=== PATIENT | female | born 1980 | race Caucasian/White ===

== ENCOUNTER 2016-10-14 12:57 | Emergency (ER) | payer OTHER ==
[~2016-10-14] VITALS: Wt 85.3 kg
[~2016-10-14 12:57] MED LIST: ACETAMINOPHEN-H1 TA2 PO; ALBUTEROL0.09 MG/A2 IH; AVIDOXY100 MG PO; DIFLUCAN150 MG PO; NKHM; PERCOCET 325 MG1 TA7 PO; PRILOSEC20 M1 PO; PRINIVIL10 MG PO; TESSALON PERLE200 MG PO; ZOFRAN ODT4 MG SL
[2016-10-14] MEDS ORDERED: HYDROCODONE BIT1 T11 PO (14:26)
[2016-10-14] MEDS ORDERED: NAPROSYN500 MG PO ×2 (14:26→14:28)
== END 2016-10-14 14:54 | disposition home or self-care (01) ==
LOC: ED 12:57
DX: S42.201A Unspecified fracture of upper end of right humerus, initial encounter for closed fracture (principal); R03.0 Elevated blood-pressure reading, without diagnosis of hypertension; F17.200 Nicotine dependence, unspecified, uncomplicated; Z91.040 Latex allergy status; Z90.49 Acquired absence of other specified parts of digestive tract; W18.30XA Fall on same level, unspecified, initial encounter; Y93.89 Activity, other specified; Y92.9 Unspecified place or not applicable; Y99.9 Unspecified external cause status

== ENCOUNTER → 2016-10-29 | Outpatient (CLI) | payer OTHER ==
[~2016-10-29] MED LIST changes: +HYDROCODONE BIT1 T11 PO; +NAPROSYN500 MG PO
== END | disposition home or self-care (01) ==
LOC: ORTHO 02:14
DX: S42.251D Displaced fracture of greater tuberosity of right humerus, subsequent encounter for fracture with routine healing (principal); X58.XXXD Exposure to other specified factors, subsequent encounter

== ENCOUNTER → 2016-11-11 | Outpatient (CLI) | payer OTHER ==
[~2016-11-11] MED LIST changes: +ADVIL,MOTRIN,R200 MG PO; +CYCLOBENZAPRINE10 MG PO
== END | disposition home or self-care (01) ==
LOC: ORTHO 03:07
DX: S42.92XD Fracture of left shoulder girdle, part unspecified, subsequent encounter for fracture with routine healing (principal); X58.XXXD Exposure to other specified factors, subsequent encounter

== ENCOUNTER → 2016-11-12 | Outpatient (CLI) | payer OTHER ==
[~2016-11-12] MED LIST changes: +PERCOCET 325 MG1 TA5 PO; +ZOFRAN4 MG PO
== END | disposition home or self-care (01) ==
LOC: CT 10:14
DX: Z01.818 Encounter for other preprocedural examination (principal); S42.254D Nondisplaced fracture of greater tuberosity of right humerus, subsequent encounter for fracture with routine healing; F17.200 Nicotine dependence, unspecified, uncomplicated; X58.XXXD Exposure to other specified factors, subsequent encounter; Z86.79 Personal history of other diseases of the circulatory system

== ENCOUNTER → 2016-11-17 | Day surgery (SDC) | payer OTHER ==
[2016-11-12 11:51] LABS: BASO # 0.1 10*3/uL (0.0-0.1); BASO % 0.6 % (0.0-1.0); EOS # 0.2 10*3/uL (0.0-0.4); EOS % 2.8 % (1.0-4.0); HEMATOCRIT 43.6 % (37.0-47.0); HEMOGLOBIN 14.7 g/dl (12.0-16.0); IG # 0.1 10*3/uL (0.0-0.1); LYMPH # 3.3 10*3/uL (1.3-4.4); LYMPH % 38.8 % (27.0-41.0); MEAN CELL VOLUME 98.2 fl (81.0-99.0); MEAN CORPUSCULAR HGB 33.1 pg (27.0-31.0); MEAN CORPUSCULAR HGB CONC 33.7 g/dl (33.0-37.0); MEAN PLATELET VOLUME 9.8 fl (9.6-12.3); MONO # 0.5 10*3/uL (0.1-1.0); MONO % 5.2 % (3.0-9.0); NEUT # 4.4 10*3/uL (2.3-7.9); NEUT % 51.8 % (47.0-73.0); PLATELET COUNT AUTOMATED 229 10*3/uL (130-400); RED BLOOD COUNT 4.44 10*6/uL (4.10-5.10); RED CELL DISTRI WIDTH 13.1 % (0-14.5); WHITE BLOOD COUNT 8.6 10*3/uL (4.8-10.8)
[2016-11-12 11:52] LABS: BILIRUBIN NEGATIVE (NEGATIVE); BLOOD 1+ (NEGATIVE); CLARITY SL CLOUDY (CLEAR); COLOR YELLOW (YELLOW); GLUCOSE NEGATIVE (NEGATIVE); KETONE NEGATIVE (NEGATIVE); LEUKO ESTERASE NEGATIVE (NEGATIVE); NITRITE NEGATIVE (NEGATIVE); PROTEIN NEGATIVE (NEGATIVE); UROBILINOGEN 0.2 E.U./dl (0.2-1.0)
[2016-11-12 12:06] LABS: BUN 10 mg/dl (7-24); CARBON DIOXIDE 27 mmol/L (21-32); CHLORIDE 107 mmol/L (98-107); EST GLOM FILT AFRICAN AMERICAN > 60 ml/min; GLUCOSE 88 mg/dL (65-99); POTASSIUM 3.7 mmol/L (3.5-5.1); SODIUM 141 mmol/L (136-145)
[~2016-11-17] VITALS: Ht 170.1 cm; Wt 86.2 kg
[2016-11-17] VITALS (8 sets, daily range): BP systolic 135–164; BP diastolic 78–94
--- NOTE | ~2016-11-17 | O ---
[place], [place] OPERATIVE NOTE NAME: CHANNING BELLO [facility] #: [id number] UNIT #: [id number] ROOM: DOCTOR: WILVER HOBBS DO BIRTHDATE: [birth year] DOS: 11/17/2016 PREOPERATIVE DIAGNOSIS: Right greater tuberosity fracture with displacement, proximal humerus. POSTOPERATIVE DIAGNOSIS: Right greater tuberosity fracture with displacement, proximal humerus. OPERATIVE PROCEDURE: Open reduction and internal fixation of right greater tuberosity fracture of the proximal humerus. SURGEON: Wilver Hobbs DO. MEDIA MARKETING DIRECTOR: Cee. ANESTHESIA: FRANCES Segura, general endotracheal. INDICATIONS: The patient is a 36-year-old female with a history of a right greater tuberosity fracture of the proximal humerus with delayed healing and minimal displacement. The risks and benefits of the procedure were explained to the patient preoperatively. Preoperative labs and x-rays were obtained. DESCRIPTION OF PROCEDURE: The right upper extremity was marked in the holding room. The patient was brought to the operative suite. The patient was placed supine on the operative table. A general anesthetic with endotracheal intubation was performed. The patient received Ancef 2 grams IV piggyback. The right upper extremity was prepped and draped in the usual orthopedic manner. Time-out was performed. A lateral incision was planned just distal to the lateral acromion approximately 2 cm in length. The area was injected with Marcaine 0.5% with epinephrine. The incision was made sharply with a scalpel. Subcutaneous tissue was spread down to the level of the deltoid. The deltoid was divided along its fibers. Under C-arm guidance, the greater tuberosity was identified. This was reduced using a [place] elevator. Three partially threaded K-wires were placed under C-arm guidance. The lengths were measured. Three 5 mm self-tapping, self-drilling screws were placed over the K wires, one was with a washer. These were advanced by hand. Position was evaluated under C-arm in multiple planes. The K-wires were removed. The area was copiously irrigated with normal saline. The wounds were repaired in a layered fashion with 2-0 Vicryl followed by 4-0 Vicryl and skin karen. The area was injected with Marcaine 0.5% with epinephrine. A dry sterile dressing was applied. The patient was placed in a sling. The anesthetic was reversed. The patient was extubated and taken to recovery room in satisfactory condition. Sponge and needle count correct. ESTIMATED BLOOD LOSS: 10 mL. SPECIMENS: None. DRAINS: None. [place], [place] OPERATIVE NOTE NAME: CHANNING BELLO UNIT #: [id number] ROOM: DOCTOR: WILVER HOBBS DO BIRTHDATE: [birth year] PACKING: None. FINDINGS: Displaced greater tuberosity fracture, right proximal humerus. IMPLANTS: Biomet 5.0 mm screws measuring 34 mm, 30 mm and 30 mm and one single Biomet washer. WILVER HOBBS DO CM:OPRECORD:OPERATIVE NOTE [id number] WILVER HOBBS DO 11/17/16 1749 interface
== END | disposition home or self-care (01) ==
LOC: SDC 11-12 10:15
PROVIDERS: Orthopaedic Surgery
DX: S42.251G Displaced fracture of greater tuberosity of right humerus, subsequent encounter for fracture with delayed healing (principal); K21.9 Gastro-esophageal reflux disease without esophagitis; F41.9 Anxiety disorder, unspecified; Z98.890 Other specified postprocedural states; F17.210 Nicotine dependence, cigarettes, uncomplicated; X58.XXXD Exposure to other specified factors, subsequent encounter

== ENCOUNTER → 2016-11-26 | Outpatient (CLI) | payer OTHER | END | disposition home or self-care (01) | LOC: CARD 13:00 | DX: Z01.810 Encounter for preprocedural cardiovascular examination (principal); I47.1 Supraventricular tachycardia; I08.3 Combined rheumatic disorders of mitral, aortic and tricuspid valves ==

== ENCOUNTER → 2016-11-30 | Outpatient (CLI) | payer OTHER | END | disposition home or self-care (01) | LOC: ORTHO 08:06 | DX: Z51.89 Encounter for other specified aftercare (principal) ==

== ENCOUNTER → 2016-12-30 | Outpatient (CLI) | payer OTHER | END | disposition home or self-care (01) | LOC: ORTHO 01:52 | DX: M25.511 Pain in right shoulder (principal) ==

== ENCOUNTER → 2017-01-18 | Outpatient (CLI) | payer OTHER | END | disposition home or self-care (01) | LOC: ORTHO 03:17 | DX: S42.251D Displaced fracture of greater tuberosity of right humerus, subsequent encounter for fracture with routine healing (principal); X58.XXXD Exposure to other specified factors, subsequent encounter ==

== ENCOUNTER → 2017-02-22 | Outpatient (CLI) | payer OTHER | END | disposition home or self-care (01) | LOC: ORTHO 01:53 | DX: S42.251G Displaced fracture of greater tuberosity of right humerus, subsequent encounter for fracture with delayed healing (principal); X58.XXXD Exposure to other specified factors, subsequent encounter ==

== ENCOUNTER → 2017-03-16 | Outpatient (CLI) | payer OTHER | END | disposition home or self-care (01) | LOC: CT 14:00 | DX: S42.251G Displaced fracture of greater tuberosity of right humerus, subsequent encounter for fracture with delayed healing (principal); M25.511 Pain in right shoulder; X58.XXXD Exposure to other specified factors, subsequent encounter ==

== ENCOUNTER → 2017-04-06 | Day surgery (SDC) | payer OTHER ==
[2017-04-02 12:05] LABS: BASO % 0.5 % (0.0-1.0); EOS # 0.2 10*3/uL (0.0-0.4); EOS % 2.8 % (1.0-4.0); HEMATOCRIT 43.1 % (37.0-47.0); HEMOGLOBIN 14.5 g/dl (12.0-16.0); LYMPH # 2.2 10*3/uL (1.3-4.4); LYMPH % 28.6 % (27.0-41.0); MEAN CELL VOLUME 102.9 fl (81.0-99.0); MEAN CORPUSCULAR HGB 34.6 pg (27.0-31.0); MEAN CORPUSCULAR HGB CONC 33.6 g/dl (33.0-37.0); MEAN PLATELET VOLUME 10.3 fl (9.6-12.3); MONO # 0.4 10*3/uL (0.1-1.0); MONO % 5.6 % (3.0-9.0); NEUT # 4.7 10*3/uL (2.3-7.9); PLATELET COUNT AUTOMATED 212 10*3/uL (130-400); RED BLOOD COUNT 4.19 10*6/uL (4.10-5.10); RED CELL DISTRI WIDTH 13.6 % (0-14.5); WHITE BLOOD COUNT 7.5 10*3/uL (4.8-10.8)
[2017-04-02 12:07] LABS: BILIRUBIN 1+ (NEGATIVE); BLOOD 1+ (NEGATIVE); CLARITY CLOUDY (CLEAR); COLOR YELLOW (YELLOW); GLUCOSE NEGATIVE (NEGATIVE); KETONE TRACE (NEGATIVE); LEUKO ESTERASE TRACE (NEGATIVE); NITRITE NEGATIVE (NEGATIVE); UROBILINOGEN 0.2 E.U./dl (0.2-1.0)
[2017-04-02 12:36] LABS: ALBUMIN 3.9 gm/dl (3.1-4.5); ALKALINE PHOSPHATASE 83 U/L (45-117); BUN 5 mg/dl (7-24); CHLORIDE 109 mmol/L (98-107); CREATININE 0.89 mg/dL (0.55-1.02); POTASSIUM 3.3 mmol/L (3.5-5.1); SGOT/AST 13 IU/L (3-35); SGPT/ALT 22 U/L (12-78); SODIUM 145 mmol/L (136-145); TOTAL PROTEIN 7.6 gm/dL (6.4-8.2)
[2017-04-02 13:18] LABS: BACTERIA 2+; MUCOUS 2+
[~2017-04-06] VITALS: Ht 170.1 cm; Wt 80.7 kg
[~2017-04-06] MED LIST changes: +ADIPEX-P37.5 MG PO; +Percocet 325 MG1 TAB PO
--- NOTE | ~2017-04-06 | O ---
[place], [place] OPERATIVE NOTE NAME: CHANNING BELLO [facility] [id number] UNIT #: [id number] ROOM: DOCTOR: HUDSON MOSESWILVER BIRTHDATE: [birth year] DOS: 04/06/2017 PREOPERATIVE DIAGNOSIS: Painful retained hardware, right shoulder. POSTOPERATIVE DIAGNOSIS: Painful retained hardware, right shoulder. OPERATIVE PROCEDURE: Removal of retained hardware, right shoulder; allograph bone graft; rotator cuff repair; manipulation under anesthetic. INDICATIONS: The patient is a 36-year-old female with a history of a greater tuberosity fracture, who underwent open reduction and internal fixation. The patient was noted to have continued pain and loss of motion. The CT scam indicated that fracture was healed, but there was a prominent hardware. The risks and benefits of the procedure were explained to the patient preoperatively. Preoperative labs and x-rays were obtained. PROCEDURE IN DETAIL: The right shoulder was marked in the holding room. The patient was brought to the operative suite. The patient was placed supine on the shoulder table. General anesthetic with endotracheal intubation was performed. A timeout was performed. The patient received Ancef 2 grams IV piggyback preoperatively. The right lower extremity was prepped and draped in usual orthopedic fashion. The C-arm was brought in to evaluate the fracture and the 3 retained 5.0 mm screws and a single washer. The previously made incision was lateral, was injected with Marcaine 0.5% with epinephrine. Subcutaneous tissue was spread down to the level of the deltoid fascia. The deltoid fascia was divided longitudinally and the deltoid muscle was divided along its fibers. The screw with the washer was identified and noted to be partially overgrown with bone. This was removed using a dental pick and rongeur. When this was exposed, it was obvious that the second screw was also impinging upon the washer and this was cleared of any bony and fibrous debris. The third screw was then identified and also removed of any bony and fibrous debris. A single K-wire was used to enter the cannulated portion of each screw. The screws were removed in a handheld fashion with a screwdriver. The washer was removed as well. The area was copiously irrigated with normal saline. The screw holes were cultured and sent for gram stain. Further irrigation was performed. The Biomet StaGraft DBM putty was used to fill the screw holes. A single stitch of 5-0 Ethibond was used to repair the longitudinal opening in the supraspinatus. A #2 Ethibond was used to close the deltoid fascia, 2-0 Vicryl was used to close the adipose layer and the closure was completed with skin karen. The incision was injected with Marcaine 0.5% with epinephrine. The dressing was applied using Xeroform, 4 x 4s and Tegaderm. An ABD was placed in the axilla. The patient was placed in a sling and swathe dressing with an abduction pillow. The anesthetic was reversed. The patient was extubated and taken to the recovery room in satisfactory condition. Sponge and needle count correct. [place], [place] OPERATIVE NOTE NAME: CHANNING BELLO UNIT #: [id number] ROOM: DOCTOR: WILVER TREVIÑO DO BIRTHDATE: [birth year] ESTIMATED BLOOD LOSS: 100 mL. FINDINGS: Painful retained hardware, right greater tuberosity. DRAINS: None. PACKING: None. WILVER TREVIÑO DO CM:OPRECORD:OPERATIVE NOTE [id number] WILVER TREVIÑO DO 04/06/17 1242 interface
[2017-04-06 11:13] VITALS: BP 131/80
[2017-04-06 11:28] VITALS: BP 131/80
[2017-04-06 11:43] VITALS: BP 137/86
[2017-04-06 11:58] VITALS: BP 137/86
[2017-04-06 12:07] VITALS: BP 136/82
== END | disposition home or self-care (01) ==
LOC: SDC 04-02 10:15
PROVIDERS: Orthopaedic Surgery
DX: T85.848A Pain due to other internal prosthetic devices, implants and grafts, initial encounter (principal); Z88.8 Allergy status to other drugs, medicaments and biological substances; Z90.49 Acquired absence of other specified parts of digestive tract; K21.9 Gastro-esophageal reflux disease without esophagitis; F41.9 Anxiety disorder, unspecified; Z98.890 Other specified postprocedural states; F17.210 Nicotine dependence, cigarettes, uncomplicated; Y83.8 Other surgical procedures as the cause of abnormal reaction of the patient, or of later complication, without mention of misadventure at the time of the procedure; Y92.89 Other specified places as the place of occurrence of the external cause

== ENCOUNTER → 2017-06-09 | Outpatient (CLI) | payer OTHER | END | disposition home or self-care (01) | LOC: ORTHO 02:08 | DX: S42.291D Other displaced fracture of upper end of right humerus, subsequent encounter for fracture with routine healing (principal); S42.91XD Fracture of right shoulder girdle, part unspecified, subsequent encounter for fracture with routine healing; X58.XXXD Exposure to other specified factors, subsequent encounter ==

== ENCOUNTER → 2017-11-15 | Outpatient (CLI) | payer MEDICAID | END | disposition home or self-care (01) | LOC: MRI 11-04 15:00 | DX: S42.254D Nondisplaced fracture of greater tuberosity of right humerus, subsequent encounter for fracture with routine healing (principal); X58.XXXD Exposure to other specified factors, subsequent encounter ==

== ENCOUNTER 2020-11-20 11:02 | Emergency (ER) | payer OTHER ==
[~2020-11-20] VITALS: Wt 94.3 kg
[2020-11-20 11:24] LABS: BASO # 0.1 10*3/uL (0.0-0.1); BASO % 0.3 % (0.0-1.0); EOS # 0.3 10*3/uL (0.0-0.4); EOS % 1.6 % (1.0-4.0); HEMATOCRIT 41.8 % (37.0-47.0); LYMPH # 3.9 10*3/uL (1.3-4.4); LYMPH % 25.1 % (27.0-41.0); MEAN CELL VOLUME 97.2 fl (81.0-99.0); MEAN CORPUSCULAR HGB 31.6 pg (27.0-31.0); MEAN CORPUSCULAR HGB CONC 32.5 g/dl (33.0-37.0); MEAN PLATELET VOLUME 9.6 fl (9.6-12.3); MONO # 0.9 10*3/uL (0.1-1.0); MONO % 5.6 % (3.0-9.0); NEUT # 10.2 10*3/uL (2.3-7.9); NEUT % 66.6 % (47.0-73.0); PLATELET COUNT AUTOMATED 301 10*3/uL (130-400); RED CELL DISTRI WIDTH 12.8 % (0-14.5); WHITE BLOOD COUNT 15.4 10*3/uL (4.8-10.8)
[2020-11-20 11:36] LABS: ALKALINE PHOSPHATASE 80 U/L (45-117); BUN 9 mg/dl (7-24); CHLORIDE 108 mmol/L (98-107); CREATININE 0.85 mg/dL (0.55-1.02); POTASSIUM 3.4 mmol/L (3.5-5.1); SGOT/AST 11 IU/L (3-35); SGPT/ALT 22 U/L (12-78); SODIUM 140 mmol/L (136-145); TOTAL PROTEIN 7.5 gm/dL (6.4-8.2)
[2020-11-20 11:45] LABS: TROPONIN I < 0.015 ng/ml (<0.045)
== END 2020-11-20 15:47 | disposition home or self-care (01) ==
LOC: ED 11:02
PROVIDERS: Internal Medicine
DX: G58.8 Other specified mononeuropathies (principal); R07.89 Other chest pain; F17.200 Nicotine dependence, unspecified, uncomplicated; Z90.49 Acquired absence of other specified parts of digestive tract; Z91.040 Latex allergy status

== ENCOUNTER 2025-02-17 21:09 | Emergency (ER) | payer BC ==
[~2025-02-17] VITALS: Ht 170.1 cm; Wt 61.2 kg
[2025-02-17] MEDS ORDERED: LORazepam 1 MG TAB PO ONE (21:35)
[2025-02-17 21:45] LABS: BASO # 0.1 10*3/uL (0.0-0.1); BASO % 0.4 % (0.0-1.0); EOS # 0.3 10*3/uL (0.0-0.4); EOS % 1.9 % (1.0-4.0); MEAN CELL VOLUME 102.1 fl (81.0-99.0); MEAN CORPUSCULAR HGB 34.0 pg (27.0-31.0); MEAN PLATELET VOLUME 9.1 fl (9.6-12.3); MONO # 1.0 10*3/uL (0.1-1.0); MONO % 6.5 % (3.0-9.0); NEUT # 9.7 10*3/uL (2.3-7.9); NEUT % 65.5 % (47.0-73.0); NUCLEATED RED BLOOD CELL 0.0 % (0.0-0.0); NUCLEATED RED BLOOD CELL 0.0 10*3/uL (0.0-0.0); PLATELET COUNT AUTOMATED 261 10*3/uL (130-400); RED CELL DISTRI WIDTH 13.2 % (0-14.5)
[2025-02-17 21:56] LABS: ACT PARTIAL THROMBO TIME 25.7 SECONDS (20.0-32.1)
[2025-02-17 21:56] LABS: BILIRUBIN Negative (Negative); BLOOD Negative (Negative); CLARITY Clear (Clear); COLOR Yellow (Yellow); KETONE Negative (Negative); LEUKO ESTERASE Negative (Negative); NITRITE Negative (Negative); PH 6.5 (4.5-8.0); SPECIFIC GRAVITY <= 1.005 (1.001-1.030); UROBILINOGEN 0.2 E.U./dl (0.0-1.0)
[2025-02-17 22:01] LABS: URINE AMPHETAMINES Negative (1000ng/ml); URINE BARBITURATES Negative (200ng/ml); URINE BENZODIAZEPINES Negative (200ng/ml); URINE CANNABINOIDS (THC) Positive (50ng/ml); URINE COCAINE Negative (300ng/ml); URINE METHADONE Negative (300ng/ml); URINE OPIATES Negative (300ng/ml); URINE PHENCYCLIDINE Negative (25ng/ml)
[2025-02-17 22:03] LABS: BACTERIA 1+
[2025-02-17 22:11] LABS: BUN 10 mg/dl (9-23); ETHYL ALCOHOL 84.1 mg/dl (<3); FREE T4 1.46 ng/dl (0.89-1.76)
== END 2025-02-18 00:11 | disposition home or self-care (01) ==
LOC: ED 21:09
PROVIDERS: Internal Medicine
DX: F41.9 Anxiety disorder, unspecified (principal); K21.9 Gastro-esophageal reflux disease without esophagitis; F17.210 Nicotine dependence, cigarettes, uncomplicated; Z90.49 Acquired absence of other specified parts of digestive tract; Z98.890 Other specified postprocedural states; Z91.040 Latex allergy status